=== PATIENT | male | born 1960 | race Caucasian/White ===

== ENCOUNTER 2017-11-06 23:10 | Emergency (ER) | payer MEDICARE ==
[~2017-11-06] VITALS: Ht 170.2 cm; Wt 74.8 kg
[~2017-11-06 23:10] MED LIST: HYDACE5 PO; INDO50 PO; MORP60ER PO; OXYC10TA19 PO; PRED20 PO
[2017-11-07 00:01] LABS: BASOPHILS ABSOLUTE AUTO 0.05 K/mm3 (0.00-0.23); BASOPHILS PERCENT AUTO 0 % (0-2); EOSINOPHILS PERCENT AUTO 0 % (0-6); Hematocrit 47.7 % (37.0-53.0); IMMATURE GRAN ABSOLUTE AUTO 0.14 K/mm3 (0.00-0.10); IMMATURE GRAN PERCENT AUTO 1 % (0-1); LYMPHOCYTES ABSOLUTE AUTO 2.43 K/mm3 (0.84-5.20); LYMPHOCYTES PERCENT AUTO 13 % (21-46); MONOCYTES ABSOLUTE AUTO 1.21 K/mm3 (0.16-1.47); MONOCYTES PERCENT AUTO 6 % (4-13); Mean Corpuscular HGB 32.1 pg (26.0-34.0); Mean Corpuscular HGB Conc 35.6 g/dL (31.5-36.5); Mean Corpuscular Volume 90 fL (80-100); Mean Platelet Volume 9.8 fL (9.1-12.4); NEUTROPHILS ABSOLUTE AUTO 15.63 K/mm3 (1.96-9.15); NEUTROPHILS PERCENT AUTO 80 % (41-73); Platelet Count 234 K/mm3 (150-400); RDW Coefficient Variation 12.8 % (11.7-14.2); RDW Standard Deviation 42.4 fL (35.1-46.3); White Blood Cell Count 19.46 K/mm3 (4.00-11.30)
[2017-11-07 00:39] LABS: Alanine Aminotransfer (ALT/SGP 32 U/L (12-78); Albumin, Blood 3.9 g/dL (3.4-5.0); Albumin/Globulin Ratio 0.9 (0.8-1.8); Alk Phos 88 U/L (50-136); Anion Gap 10 mmol/L (6-16); Aspartate Aminotrans (AST/SGOT 25 U/L (12-37); Bilirubin, Total 0.6 mg/dL (0.1-1.0); Blood Urea Nitrogen 14 mg/dL (8-24); Bun/Creatinine Ratio 24.1 (12.0-20.0); CO2, Blood 25 mmol/L (21-32); Calcium, Blood 8.5 mg/dL (8.5-10.1); Chloride, Blood 102 mmol/L (98-108); Creatinine, Blood 0.58 mg/dL (0.60-1.20); Globulin, Blood 4.3 g/dL (2.2-4.0); Glomerular Filtration Rate >60 (60-); Glucose, Blood 125 mg/dL (70-99); Potassium, Blood 3.9 mmol/L (3.5-5.5); Sodium, Blood 137 mmol/L (136-145); Total Protein, Blood 8.2 g/dL (6.4-8.2)
[2017-11-07] MEDS ORDERED: Zofran Odt4 MG PO (01:27)
[2017-11-07] MEDS ORDERED: Norco 5-325 Ta1 EACH PO (01:27)
== END 2017-11-07 01:59 | disposition home or self-care (01) ==
LOC: ER 23:10
PROVIDERS: Emergency Medicine
DX: K85.90 Acute pancreatitis without necrosis or infection, unspecified (principal); F17.210 Nicotine dependence, cigarettes, uncomplicated; Z86.19 Personal history of other infectious and parasitic diseases
CPT/HCPCS: 80053; 83690; 85025; 96361; 96374; 96375; 96376; 99284; J2270; J2405; J7030

== ENCOUNTER → 2018-10-18 | Outpatient (CLI) | payer MEDICARE ==
[~2018-10-18] MED LIST changes: +Norco 5-325 Ta1 EACH PO; +Zofran Odt4 MG PO
== END | disposition home or self-care (01) ==
LOC: LAB SHORT 12:25 → PLD 12:25
DX: R23.4 Changes in skin texture (principal); L98.8 Other specified disorders of the skin and subcutaneous tissue
CPT/HCPCS: 88305; 88312

== ENCOUNTER → 2018-10-18 | Outpatient (CLI) | payer MEDICARE | END | disposition home or self-care (01) | LOC: LAB 12:08 → LAB SHORT 12:08 | DX: L08.0 Pyoderma (principal) | CPT/HCPCS: 87070; 87205 ==

== ENCOUNTER 2021-08-28 12:10 | Observation (INO) | payer MEDICARE ==
[~2021-08-28] VITALS: Ht 170.2 cm; Wt 82.5 kg
[2021-08-28 13:01] LABS: BASOPHILS ABSOLUTE AUTO 0.06 K/mm3 (0.00-0.23); BASOPHILS PERCENT AUTO 0 % (0-2); EOSINOPHILS ABSOLUTE AUTO 0.02 K/mm3 (0.00-0.68); EOSINOPHILS PERCENT AUTO 0 % (0-6); Hematocrit 47.1 % (37.0-53.0); Hemoglobin 16.9 g/dL (13.5-17.5); IMMATURE GRAN ABSOLUTE AUTO 0.25 K/mm3 (0.00-0.10); IMMATURE GRAN PERCENT AUTO 1 % (0-1); LYMPHOCYTES ABSOLUTE AUTO 1.35 K/mm3 (0.84-5.20); LYMPHOCYTES PERCENT AUTO 5 % (21-46); MONOCYTES ABSOLUTE AUTO 1.88 K/mm3 (0.16-1.47); MONOCYTES PERCENT AUTO 7 % (4-13); Mean Corpuscular HGB 33.3 pg (26.0-34.0); Mean Corpuscular HGB Conc 35.9 g/dL (31.5-36.5); Mean Corpuscular Volume 93 fL (80-100); Mean Platelet Volume 10.9 fL (9.1-12.4); NEUTROPHILS ABSOLUTE AUTO 23.46 K/mm3 (1.96-9.15); NEUTROPHILS PERCENT AUTO 87 % (41-73); Platelet Count 301 K/mm3 (150-400); RDW Coefficient Variation 12.5 % (11.7-14.2); RDW Standard Deviation 42.8 fL (35.1-46.3); Red Blood Cell Count 5.08 M/mm3 (4.30-5.90); White Blood Cell Count 27.02 K/mm3 (4.00-11.30)
[2021-08-28 13:13] LABS: Alanine Aminotransfer (ALT/SGP 28 U/L (12-78); Albumin/Globulin Ratio 0.6 (0.8-1.8); Alk Phos 72 U/L (50-136); Anion Gap 8 mmol/L (6-16); Aspartate Aminotrans (AST/SGOT 26 U/L (12-37); Bilirubin, Total 2.3 mg/dL (0.1-1.0); Blood Urea Nitrogen 18 mg/dL (8-24); Bun/Creatinine Ratio 20.7 (12.0-20.0); CO2, Blood 27 mmol/L (21-32); Calcium, Blood 9.3 mg/dL (8.5-10.1); Chloride, Blood 97 mmol/L (98-108); Creatinine, Blood 0.87 mg/dL (0.60-1.20); Globulin, Blood 5.1 g/dL (2.2-4.0); Glomerular Filtration Rate >60 (60-); Glucose, Blood 141 mg/dL (70-99); Potassium, Blood 4.2 mmol/L (3.5-5.5); Sodium, Blood 132 mmol/L (136-145); Total Protein, Blood 8.1 g/dL (6.4-8.2)
[2021-08-28] MEDS ORDERED: AMLO10 PO (17:19)
[2021-08-28] MEDS ORDERED: LOSARTAN-HCTZ1 EACH PO (17:20)
[2021-08-28] MEDS ORDERED: OMEP20ER PO (17:21)
--- NOTE | 2021-08-28 17:54 | NUR ---
1650 ARRIVED TO ROOM VIA GURNEY. PT AMBULATED TO BATHROOM TO VOID DARK, BRIGHT ORANGE URINE. PT REPORTS CURRENTLY WITH 7/10 ABD PAIN.
--- NOTE | 2021-08-28 17:55 | NUR ---
PT REPORTS ABD PAIN DECREASED AFTER IV MEDS AND IS CURRENTLY 4/10 . PT TELLS ME HE IS PLANNING TO DISCHARGE TO HOME TOMORROW. DISCUSSED WITH PATIENT CURRENT TREATMENT PLAN AND PHYSICIAN ORDERS. PT TALKATIVE, COOPERATIVE
[2021-08-29 04:14] LABS: BASOPHILS ABSOLUTE AUTO 0.04 K/mm3 (0.00-0.23); BASOPHILS PERCENT AUTO 0 % (0-2); EOSINOPHILS ABSOLUTE AUTO 0.19 K/mm3 (0.00-0.68); EOSINOPHILS PERCENT AUTO 1 % (0-6); Hematocrit 38.1 % (37.0-53.0); Hemoglobin 13.3 g/dL (13.5-17.5); IMMATURE GRAN ABSOLUTE AUTO 0.13 K/mm3 (0.00-0.10); IMMATURE GRAN PERCENT AUTO 1 % (0-1); LYMPHOCYTES ABSOLUTE AUTO 1.49 K/mm3 (0.84-5.20); LYMPHOCYTES PERCENT AUTO 8 % (21-46); MONOCYTES ABSOLUTE AUTO 1.58 K/mm3 (0.16-1.47); MONOCYTES PERCENT AUTO 8 % (4-13); Mean Corpuscular HGB 32.9 pg (26.0-34.0); Mean Corpuscular HGB Conc 34.9 g/dL (31.5-36.5); Mean Corpuscular Volume 94 fL (80-100); Mean Platelet Volume 10.5 fL (9.1-12.4); NEUTROPHILS ABSOLUTE AUTO 16.24 K/mm3 (1.96-9.15); NEUTROPHILS PERCENT AUTO 83 % (41-73); Platelet Count 212 K/mm3 (150-400); RDW Coefficient Variation 12.6 % (11.7-14.2); RDW Standard Deviation 43.5 fL (35.1-46.3); Red Blood Cell Count 4.04 M/mm3 (4.30-5.90); White Blood Cell Count 19.67 K/mm3 (4.00-11.30)
[2021-08-29 04:44] LABS: Anion Gap 6 mmol/L (6-16); Blood Urea Nitrogen 15 mg/dL (8-24); CO2, Blood 26 mmol/L (21-32); Calcium, Blood 7.9 mg/dL (8.5-10.1); Chloride, Blood 104 mmol/L (98-108); Creatinine, Blood 0.68 mg/dL (0.60-1.20); Glomerular Filtration Rate >60 (60-); Glucose, Blood 117 mg/dL (70-99); Potassium, Blood 4.4 mmol/L (3.5-5.5); Sodium, Blood 136 mmol/L (136-145)
--- NOTE | 2021-08-29 06:05 | NUR ---
SHIFT SUMMARY A/O X4, PAIN MANAGED PER EMAR, NO TELE EVENTS, INDEPENDENT TO BATHROOM, FLUIDS INFUSING ORDERED. NO ACUTE EVENTS THIS SHIFT. CALL LIGHT IN REACH, WILL CTM AND REPORT TO DAY RN.
[2021-08-29] MEDS ORDERED: CALCIUM CARBON500 M1 PO (11:44)
[2021-08-29] MEDS ORDERED: Percocet 5-3251 EACH PO (11:45)
--- NOTE | 2021-08-29 13:16 | NUR ---
DC'S HOME THIS AM, IV DC'D CATH INTACT, DC INSTRUCTIONS GIVEN, VERBALIZED UNDERSTANDING.
== END 2021-08-29 11:59 | disposition home or self-care (01) ==
LOC: ER 12:10 → SURS 12:11
PROVIDERS: Emergency Medicine; ADMIT Internal Medicine
DX: K85.10 Biliary acute pancreatitis without necrosis or infection (principal); F17.210 Nicotine dependence, cigarettes, uncomplicated; R65.10 Systemic inflammatory response syndrome (SIRS) of non-infectious origin without acute organ dysfunction; E87.1 Hypo-osmolality and hyponatremia; E78.5 Hyperlipidemia, unspecified; K76.0 Fatty (change of) liver, not elsewhere classified
CPT/HCPCS: 36415; 74177; 76705; 80048; 80053; 82330; 83690; 85025; 93005; 93010; A9270; J1170; J1650; J1885; J2405; J3010; J7030; Q9967

== ENCOUNTER 2021-11-09 07:23 | Day surgery (SDC) | payer MEDICARE ==
[~2021-11-09] VITALS: Ht 170.2 cm; Wt 80.9 kg
[~2021-11-09 07:23] MED LIST changes: +AMLO10 PO; +ATOR80 PO; +CALCIUM CARBON500 M1 PO; +LOSARTAN-HCTZ1 EAC6 PO; +MAGNESIUM OXID400 M1 PO; +Magnesium30 MG PO; +OMEP20ER PO; +Percocet 5-3251 EACH PO; +THERA-D2000 UNIT PO; +VITAMIN D325 MC3 PO
--- NOTE | 2021-11-09 09:15 | NUR ---
PT HAS A HX OF HEP C
--- NOTE | 2021-11-09 12:06 | NUR ---
PT TOLERATING PO FLUIDS AND SALTINES. RIDE INFORMED OF STATUS.
--- NOTE | 2021-11-09 12:30 | NUR ---
Discharge instructions reviewed with patient. Patient verbalizes understanding. Copy given to patient to take home. Dressing to procedure site clean, dry, intact with no visible drainage, swelling, erythema or bruising noted. Discharged via wheelchair to private car for ride home.
--- NOTE | 2021-11-10 15:10 | NUR ---
11/10/21 1510 Michelle Scherer VERIFICATIONS: EDIT CHART.
== END 2021-11-09 12:33 | disposition home or self-care (01) ==
LOC: ORSCMMR 07:23 → ORD 08:45 → ORSCMMR 12:33
PROVIDERS: Surgery
PROC: 0FT44ZZ Resection of Gallbladder, Percutaneous Endoscopic Approach (ICD-10-PCS; principal; 2021-11-09 08:45)
PROC: BF031ZZ Plain Radiography of Gallbladder and Bile Ducts using Low Osmolar Contrast (ICD-10-PCS; principal; 2021-11-09 08:45)
DX: K82.8 Other specified diseases of gallbladder (principal); K66.0 Peritoneal adhesions (postprocedural) (postinfection); I10 Essential (primary) hypertension; B19.20 Unspecified viral hepatitis C without hepatic coma; K21.9 Gastro-esophageal reflux disease without esophagitis; F17.210 Nicotine dependence, cigarettes, uncomplicated; Z79.899 Other long term (current) drug therapy
CPT/HCPCS: 74300; 88304; A9270; C1729; J0330; J0690; J1100; J1885; J2405; J2550; J2704; J3010; J7120

== ENCOUNTER 2022-02-10 00:55 | Emergency (ER) | payer MEDICARE ==
[~2022-02-10] VITALS: Ht 172.7 cm; Wt 97.5 kg
[2022-02-10 02:01] LABS: BASOPHILS ABSOLUTE AUTO 0.04 K/mm3 (0.00-0.23); BASOPHILS PERCENT AUTO 1 % (0-2); EOSINOPHILS ABSOLUTE AUTO 0.18 K/mm3 (0.00-0.68); EOSINOPHILS PERCENT AUTO 2 % (0-6); Hemoglobin 16.4 g/dL (13.5-17.5); IMMATURE GRAN ABSOLUTE AUTO 0.05 K/mm3 (0.00-0.10); IMMATURE GRAN PERCENT AUTO 1 % (0-1); LYMPHOCYTES ABSOLUTE AUTO 2.35 K/mm3 (0.84-5.20); LYMPHOCYTES PERCENT AUTO 30 % (21-46); MONOCYTES ABSOLUTE AUTO 0.87 K/mm3 (0.16-1.47); MONOCYTES PERCENT AUTO 11 % (4-13); Mean Corpuscular HGB 32.6 pg (26.0-34.0); Mean Corpuscular HGB Conc 34.9 g/dL (31.5-36.5); Mean Corpuscular Volume 93 fL (80-100); Mean Platelet Volume 9.9 fL (9.1-12.4); NEUTROPHILS PERCENT AUTO 55 % (41-73); Platelet Count 259 K/mm3 (150-400); RDW Coefficient Variation 12.5 % (11.7-14.2); RDW Standard Deviation 43.4 fL (35.1-46.3); Red Blood Cell Count 5.03 M/mm3 (4.30-5.90); White Blood Cell Count 7.79 K/mm3 (4.00-11.30)
[2022-02-10 02:18] LABS: Alanine Aminotransfer (ALT/SGP 38 U/L (12-78); Albumin, Blood 3.8 g/dL (3.4-5.0); Alk Phos 79 U/L (50-136); Anion Gap 5 mmol/L (6-16); Aspartate Aminotrans (AST/SGOT 29 U/L (12-37); Bilirubin, Total 0.5 mg/dL (0.1-1.0); Blood Urea Nitrogen 14 mg/dL (8-24); Bun/Creatinine Ratio 19.6 (12.0-20.0); CO2, Blood 29 mmol/L (21-32); Calcium, Blood 9.3 mg/dL (8.5-10.1); Chloride, Blood 104 mmol/L (98-108); Creatinine, Blood 0.71 mg/dL (0.60-1.20); Ethanol (Alcohol), Blood, Med <3 mg/dL; Globulin, Blood 3.9 g/dL (2.2-4.0); Glomerular Filtration Rate >60 (60-); Glucose, Blood 124 mg/dL (70-99); Sodium, Blood 138 mmol/L (136-145); Total Protein, Blood 7.7 g/dL (6.4-8.2)
[2022-02-10] MEDS ORDERED: Protonix40 MG PO (03:10)
== END 2022-02-10 03:20 | disposition home or self-care (01) ==
LOC: ER 00:55
PROVIDERS: Emergency Medicine
DX: R10.11 Right upper quadrant pain (principal); R10.13 Epigastric pain; K86.3 Pseudocyst of pancreas; F17.200 Nicotine dependence, unspecified, uncomplicated; Z90.49 Acquired absence of other specified parts of digestive tract; Z79.899 Other long term (current) drug therapy
CPT/HCPCS: 36415; 74177; 80053; 83605; 83690; 85025; A9270; G0480; J1885; J7030; Q9967

== ENCOUNTER 2022-02-12 23:19 | Emergency (ER) | payer MEDICARE ==
[~2022-02-12] VITALS: Ht 170.2 cm; Wt 81.7 kg
[~2022-02-12 23:19] MED LIST changes: +Protonix40 MG PO
[2022-02-13 01:12] LABS: BASOPHILS ABSOLUTE AUTO 0.07 K/mm3 (0.00-0.23); BASOPHILS PERCENT AUTO 1 % (0-2); EOSINOPHILS ABSOLUTE AUTO 0.28 K/mm3 (0.00-0.68); EOSINOPHILS PERCENT AUTO 3 % (0-6); Hematocrit 43.9 % (37.0-53.0); Hemoglobin 15.2 g/dL (13.5-17.5); IMMATURE GRAN ABSOLUTE AUTO 0.08 K/mm3 (0.00-0.10); IMMATURE GRAN PERCENT AUTO 1 % (0-1); LYMPHOCYTES ABSOLUTE AUTO 2.42 K/mm3 (0.84-5.20); LYMPHOCYTES PERCENT AUTO 25 % (21-46); MONOCYTES ABSOLUTE AUTO 1.21 K/mm3 (0.16-1.47); MONOCYTES PERCENT AUTO 13 % (4-13); Mean Corpuscular HGB 33.1 pg (26.0-34.0); Mean Corpuscular HGB Conc 34.6 g/dL (31.5-36.5); Mean Corpuscular Volume 96 fL (80-100); Mean Platelet Volume 10.8 fL (9.1-12.4); NEUTROPHILS ABSOLUTE AUTO 5.47 K/mm3 (1.96-9.15); NEUTROPHILS PERCENT AUTO 58 % (41-73); Platelet Count 262 K/mm3 (150-400); RDW Coefficient Variation 12.9 % (11.7-14.2); RDW Standard Deviation 45.6 fL (35.1-46.3); Red Blood Cell Count 4.59 M/mm3 (4.30-5.90); White Blood Cell Count 9.53 K/mm3 (4.00-11.30)
[2022-02-13 01:24] LABS: Albumin, Blood 3.5 g/dL (3.4-5.0); Bilirubin, Total 0.3 mg/dL (0.1-1.0); Calcium, Blood 8.8 mg/dL (8.5-10.1); Creatinine, Blood 1.44 mg/dL (0.60-1.20); Globulin, Blood 3.4 g/dL (2.2-4.0); Potassium, Blood 4.2 mmol/L (3.5-5.5); Total Protein, Blood 6.9 g/dL (6.4-8.2)
== END 2022-02-13 02:10 | disposition home or self-care (01) ==
LOC: ER 23:19
PROVIDERS: Student in an Organized Health Care Education/Training Program
DX: R55 Syncope and collapse (principal); I10 Essential (primary) hypertension; E78.5 Hyperlipidemia, unspecified; F17.200 Nicotine dependence, unspecified, uncomplicated; Z79.899 Other long term (current) drug therapy
CPT/HCPCS: 36415; 71046; 80053; 84484; 85025; 93005; 93010

== ENCOUNTER 2022-10-23 19:02 | Inpatient (IN) | payer MEDICARE ==
[~2022-10-23] VITALS: Ht 175.3 cm; Wt 80.0 kg
[2022-10-23 19:45] LABS: Hematocrit 52.1 % (37.0-53.0); Hemoglobin 18.7 g/dL (13.5-17.5); Mean Corpuscular HGB Conc 35.9 g/dL (31.5-36.5); Mean Corpuscular Volume 92 fL (80-100); Mean Platelet Volume 10.7 fL (9.1-12.4); Platelet Count 224 K/mm3 (150-400); RDW Coefficient Variation 12.7 % (11.7-14.2); RDW Standard Deviation 42.5 fL (35.1-46.3); Red Blood Cell Count 5.66 M/mm3 (4.30-5.90); White Blood Cell Count 29.45 K/mm3 (4.00-11.30)
[2022-10-23 20:05] LABS: BAND PERCENT MAN 2 % (0-8); BASOPHILS PERCENT MAN 0 % (0-2); EOSINOPHILS PERCENT MAN 0 % (0-6); LYMPHOCYTES % ATYPICAL MANUAL 2 % (0-0); LYMPHOCYTES ABSOLUTE MAN 1.76 K/mm3 (0.84-5.20); LYMPHOCYTES PERCENT MAN 4 % (21-46); MONOCYTES ABSOLUTE MAN 0.88 K/mm3 (0.16-1.47); MONOCYTES PERCENT MAN 3 % (4-13); NEUTROPHILS ABSOLUTE MAN 26.79 K/mm3 (1.96-9.15); SEG NEUTROPHILS PERCENT MAN 89 % (41-73); TOTAL CELLS COUNTED 100
[2022-10-23 20:15] LABS: Albumin, Blood 3.3 g/dL (3.4-5.0); Albumin/Globulin Ratio 0.7 (0.8-1.8); Bun/Creatinine Ratio 16.9 (12.0-20.0); Calcium, Blood 8.9 mg/dL (8.5-10.1); Creatinine, Blood 0.77 mg/dL (0.60-1.20); Globulin, Blood 4.6 g/dL (2.2-4.0); Potassium, Blood 4.8 mmol/L (3.5-5.5); Total Protein, Blood 7.9 g/dL (6.4-8.2)
[2022-10-23 22:34] LABS: Source, Urine Voided
[2022-10-23 22:42] LABS: Blood, Urine 2+ (Neg); Glucose Qualitative, Urine Neg (Neg); Ketones, Urine 1+ (Neg); Leukocyte Esterase, Urine 1+ (Neg); Nitrite, Urine Pos (Neg); Protein, Urine 3+ (Neg); Urobilinogen, Urine 1+ (Normal)
[2022-10-23 22:50] LABS: Appearance, Urine Hazy (Clear); Bilirubin, Urine 1+ (Neg); Color, Urine Amber (P-Yellow)
[2022-10-23 22:51] LABS: Amorphous Mod (0-Heavy); Bacteria Few /hpf; Granular Casts 0-2 /lpf (0); Red Blood Cells, Urine 0-2 /hpf (0-2); Squamous Epithelial Cells Not Seen /hpf (Few); WBC Cast 0-2 /lpf (0)
--- NOTE | 2022-10-24 01:19 | NUR ---
PATIENT IS A NEW ADMIT FROM THE ED. AXOX 4 AND SBA TRANSFER FROM [facility] TO BED. ON ROOM AIR. DENIES CHEST PAIN, SOB, AND N/V. REPORTING ABDOMINAL PAIN. PATIENT ORIENTED TO ROOM AND CALL LIGHT.
--- NOTE | 2022-10-24 01:21 | NUR ---
PATIENT GIVEN IV DILAUDID 1 MG FOR ABDOMINAL PAIN. LR BOLUS STARTED PER EMAR. TELEMETRY PLACED AND TECH REPORTS ST 112. WCTM
--- NOTE | 2022-10-24 05:11 | NUR ---
SHIFT SUMMARY PATIENT HAD NO ACUTE CHANGES. AXOX 4 AND INDEPENDENT IN ROOM. PIV REMAINS INTACT. RECEIVED LR BOLUS PER ORDER FOLLOWED BY RATE OF 125 mL/HR. REPORTS DEVELOPER REPORTS ST 112. REPORTED ABDOMEN PAIN AND IV DILAUDID 1 MG GIVEN PRN. REPORTED LAST BEER WAS 10/20/22. HR INCREASED TO 140 PER TECH WHEN NAUSEOUS X ONE. IV ZOFRAN GIVEN WITH GOOD EFFECT. REPORTS LIKES TO SLEEP WITH TV ON. CALL LIGHT IN REACH. BED IN LOWEST POSITION. WILL CONTINUE TO MONITOR UNTIL DAY SHIFT NURSE ASSUMES CARE.
[2022-10-24 05:48] LABS: BASOPHILS ABSOLUTE AUTO 0.05 K/mm3 (0.00-0.23); BASOPHILS PERCENT AUTO 0 % (0-2); EOSINOPHILS ABSOLUTE AUTO 0.02 K/mm3 (0.00-0.68); EOSINOPHILS PERCENT AUTO 0 % (0-6); Hematocrit 45.6 % (37.0-53.0); Hemoglobin 16.2 g/dL (13.5-17.5); IMMATURE GRAN ABSOLUTE AUTO 0.32 K/mm3 (0.00-0.10); IMMATURE GRAN PERCENT AUTO 1 % (0-1); LYMPHOCYTES PERCENT AUTO 4 % (21-46); MONOCYTES ABSOLUTE AUTO 1.49 K/mm3 (0.16-1.47); MONOCYTES PERCENT AUTO 6 % (4-13); Mean Corpuscular HGB 32.9 pg (26.0-34.0); Mean Corpuscular HGB Conc 35.5 g/dL (31.5-36.5); Mean Corpuscular Volume 93 fL (80-100); Mean Platelet Volume 10.7 fL (9.1-12.4); NEUTROPHILS ABSOLUTE AUTO 21.32 K/mm3 (1.96-9.15); NEUTROPHILS PERCENT AUTO 88 % (41-73); Platelet Count 155 K/mm3 (150-400); RDW Coefficient Variation 12.9 % (11.7-14.2); RDW Standard Deviation 43.8 fL (35.1-46.3); Red Blood Cell Count 4.92 M/mm3 (4.30-5.90)
[2022-10-24 06:10] LABS: Albumin, Blood 2.8 g/dL (3.4-5.0); Albumin/Globulin Ratio 0.7 (0.8-1.8); Bilirubin, Total 1.2 mg/dL (0.1-1.0); Bun/Creatinine Ratio 20.5 (12.0-20.0); Calcium, Blood 8.2 mg/dL (8.5-10.1); Creatinine, Blood 0.73 mg/dL (0.60-1.20); Globulin, Blood 4.1 g/dL (2.2-4.0); Potassium, Blood 4.3 mmol/L (3.5-5.5); Total Protein, Blood 6.9 g/dL (6.4-8.2)
--- NOTE | 2022-10-24 18:01 | NUR ---
SHIFT SUMMARY A&O X 4. VSS. MEDICATED THROUGHOUT SHIFT FOR C/O ABD PAIN WITH IV DILAUDID PER EMAR WITH GOOD EFFECT. USES URINAL INDEPENDENTLY, URINE IS A DARK YELLOW TO ORANGE COLOR. IS UNABLE TO EAT, TRIES DRINKING WATER & SOME JUICES OFF AND ON. TOLERATES FLUIDS MOST OF THE TIME. HAS DENIED NAUSEA. IVF's INFUSING PER EMAR. HAS STATED HE HAS SLEPT OFF & ON THROUGHOUT SHIFT REPORTING THE SLEEP IS HELPING HIS PAIN. IS PLEASANT & COOPERATIVE WITH ALL CARE.
[2022-10-25 06:08] LABS: Alanine Aminotransfer (ALT/SGP 27 U/L (12-78); Albumin, Blood 2.2 g/dL (3.4-5.0); Albumin/Globulin Ratio 0.6 (0.8-1.8); Alk Phos 63 U/L (50-136); Anion Gap 3 mmol/L (6-16); Aspartate Aminotrans (AST/SGOT 20 U/L (12-37); Blood Urea Nitrogen 22 mg/dL (8-24); Bun/Creatinine Ratio 26.3 (12.0-20.0); C-REACTIVE PROTEIN, EXT RANGE >19.000 mg/dL (0.000-0.300); CO2, Blood 29 mmol/L (21-32); Calcium, Blood 7.9 mg/dL (8.5-10.1); Chloride, Blood 96 mmol/L (98-108); Creatinine, Blood 0.84 mg/dL (0.60-1.20); Globulin, Blood 3.9 g/dL (2.2-4.0); Glomerular Filtration Rate 100 (60-); Glucose, Blood 159 mg/dL (70-99); Potassium, Blood 4.3 mmol/L (3.5-5.5); Sodium, Blood 128 mmol/L (136-145); Total Protein, Blood 6.1 g/dL (6.4-8.2)
--- NOTE | 2022-10-25 06:15 | NUR ---
PATIENT ALERT AND ORIENTED AND VERY PLEASANT, INDEPENDENT, ROOM AIR, TELE DISCONTINUED THIS AM, CLEAR LIQUIDS, 20 RAC W/ LR @ 125, BM 10/25/22, COMPLAINED OF PAIN EVERY 4 HOURS WHEN PAIN MEDICATION IS DUE. NO EVENTS OVERNIGHT
--- NOTE | 2022-10-25 10:56 | NUR ---
UPDATE THIS RN WITH STUDENT AT TIME OF SHIFT ASSESSMENT AND IN AGREEMENT WITH ASSESSMENT. ASSISTED DIRECTOR OF CONSUMER MARKETING WITH CHARTING SHIFT ASSESSMENT.
--- NOTE | 2022-10-25 17:33 | NUR ---
SHIFT SUMMARY PATIENT MEDICATED FOR PAIN X3. PATIENT DENIES NAUSEA AND SHORTNESS OF BREATH. PATIENT IS IND IN ROOM. PATIENT HAS LR RUNNING AT 125. NEW IV PLACED TO LEFT UPPER ARM. PATIENT VISITED IN AFTERNOON. PATIENT TOLERATING CLEAR LIQUID DIET WELL. PATIENT IS EAGER TO GO HOME. PATIENT IS PLEASANT AND COOPERATIVE WITH CARE.
--- NOTE | 2022-10-26 04:02 | NUR ---
SHIFT SUMMARY PATIENT IS ALERT AND ORIENTED. PATIENT HAS HAD NO ACUTE EVENTS THIS SHFIT. VITAL SIGNS REVIEWED. PATIENT HAS BEEN IND IN ROOM AND VERBALIZES NEEDS EFECTIVELY. PATIENT HAS COMPLAINED OF PAIN AND MEDICATED PER EMAR. PATIENT HAS NOT COMPLAINED OF SOB, NAUSEA OR VOMITTING. PATIENT HAS BEEN RESTING MOST OF SHIFT. BED IN LOCKED AND LOWEST POSITION. CALL LIGHT IN PLACE. WILL MONITOR UNTIL SHIFT CHANGE.
[2022-10-26 06:32] LABS: Bun/Creatinine Ratio 17.8 (12.0-20.0); Calcium, Blood 7.9 mg/dL (8.5-10.1); Creatinine, Blood 1.01 mg/dL (0.60-1.20); Potassium, Blood 3.9 mmol/L (3.5-5.5)
[2022-10-26] MEDS ORDERED: CREON DR 12,001 EACH PO (11:03)
[2022-10-26] MEDS ORDERED: LOSARTAN POTAS100 M1 PO (11:03)
[2022-10-26] MEDS ORDERED: ONDA4ODT MM (11:05)
[2022-10-26] MEDS ORDERED: HYDMOR2 PO (11:20)
== END 2022-10-26 13:35 | disposition home or self-care (01) | DRG 439 ==
LOC: ER 19:02 → MEDS 19:03
PROVIDERS: Emergency Medicine; Family Medicine; Internal Medicine; ADMIT Internal Medicine
DX: K85.20 Alcohol induced acute pancreatitis without necrosis or infection (principal); E87.1 Hypo-osmolality and hyponatremia; R65.10 Systemic inflammatory response syndrome (SIRS) of non-infectious origin without acute organ dysfunction; K85.10 Biliary acute pancreatitis without necrosis or infection; K75.81 Nonalcoholic steatohepatitis (NASH); B19.20 Unspecified viral hepatitis C without hepatic coma; E78.5 Hyperlipidemia, unspecified; I10 Essential (primary) hypertension; K21.9 Gastro-esophageal reflux disease without esophagitis; F17.210 Nicotine dependence, cigarettes, uncomplicated; R94.31 Abnormal electrocardiogram [ECG] [EKG]; K70.30 Alcoholic cirrhosis of liver without ascites; F10.20 Alcohol dependence, uncomplicated; E80.6 Other disorders of bilirubin metabolism; Z79.899 Other long term (current) drug therapy; Z79.02 Long term (current) use of antithrombotics/antiplatelets; Z71.41 Alcohol abuse counseling and surveillance of alcoholic; Z79.891 Long term (current) use of opiate analgesic; Z90.49 Acquired absence of other specified parts of digestive tract
CPT/HCPCS: 36415; 71046; 74177; 80048; 80053; 81001; 83615; 83690; 85025; 86140; 87086; 93005; 93010; 96361; 96372; 96374-59; 96375; 96376; 99285-25; A9270; G0378; J1170; J1650; J2270; J2405; J7120; Q9967

== ENCOUNTER 2022-11-06 11:53 | Inpatient (IN) | payer MEDICARE ==
[~2022-11-06] VITALS: Ht 170.2 cm; Wt 78.2 kg
[~2022-11-06 11:53] MED LIST changes: +CREON DR 12,001 EACH PO; +HYDMOR2 PO; +LOSARTAN POTAS100 M1 PO; +ONDA4ODT MM
[2022-11-06 13:02] LABS: BASOPHILS ABSOLUTE AUTO 0.11 K/mm3 (0.00-0.23); BASOPHILS PERCENT AUTO 1 % (0-2); EOSINOPHILS ABSOLUTE AUTO 0.34 K/mm3 (0.00-0.68); EOSINOPHILS PERCENT AUTO 4 % (0-6); Hematocrit 41.1 % (37.0-53.0); Hemoglobin 14.5 g/dL (13.5-17.5); IMMATURE GRAN ABSOLUTE AUTO 0.06 K/mm3 (0.00-0.10); IMMATURE GRAN PERCENT AUTO 1 % (0-1); LYMPHOCYTES ABSOLUTE AUTO 2.28 K/mm3 (0.84-5.20); LYMPHOCYTES PERCENT AUTO 27 % (21-46); MONOCYTES PERCENT AUTO 7 % (4-13); Mean Corpuscular HGB 32.5 pg (26.0-34.0); Mean Corpuscular HGB Conc 35.3 g/dL (31.5-36.5); Mean Corpuscular Volume 92 fL (80-100); Mean Platelet Volume 10.7 fL (9.1-12.4); NEUTROPHILS PERCENT AUTO 60 % (41-73); Platelet Count 342 K/mm3 (150-400); RDW Coefficient Variation 13.1 % (11.7-14.2); Red Blood Cell Count 4.46 M/mm3 (4.30-5.90); White Blood Cell Count 8.39 K/mm3 (4.00-11.30)
[2022-11-06 13:12] LABS: Albumin/Globulin Ratio 0.6 (0.8-1.8); Bilirubin, Total 0.4 mg/dL (0.1-1.0); Bun/Creatinine Ratio 30.8 (12.0-20.0); Calcium, Blood 9.1 mg/dL (8.5-10.1); Creatinine, Blood 0.55 mg/dL (0.60-1.20); Globulin, Blood 4.8 g/dL (2.2-4.0); Potassium, Blood 3.4 mmol/L (3.5-5.5); Total Protein, Blood 7.8 g/dL (6.4-8.2)
[2022-11-06] MEDS ORDERED: OMEP20ER PO (13:58)
[2022-11-06] MEDS ORDERED: CARAFATE1 GM/10 M1 PO (13:58)
--- NOTE | 2022-11-06 18:27 | NUR ---
PT ARRIVED TO FLOOR AT 1450 VIA CART AND WAS ABLE TO EASILY TRANSFER OVER, JUST NEEDED HELP WITH HIS LINES. PT AOX4 AND COOPERATIVE OF CARE. PT TREATED FOR ABD PAIN PER EMAR. NO DISTRESS NOTED AT THIS TIME, CALL LIGHT WITHIN REACH WILL CONTINUE TO MONITOR.
--- NOTE | 2022-11-06 19:35 | NUR ---
CALLED KENAN ([facility]) REGARDING PATIENTS PAIN. NEW ORDERS GIVEN FOR OXY Q4 PRN FOR BREAKTHROUGH PAIN
--- NOTE | 2022-11-06 23:47 | NUR ---
SPOKE WITH KENAN REGARDING PATIENTS PAIN NOT BEING CONTROLLED BY OXY AND FENTANYL. ORDERS GIVEN TO INCREASE OXY TO 10MG AND 5MG MELATONIN FOR SLEEP
[2022-11-07 04:48] LABS: Bun/Creatinine Ratio 19.8 (12.0-20.0); Calcium, Blood 8.4 mg/dL (8.5-10.1); Creatinine, Blood 0.61 mg/dL (0.60-1.20); Potassium, Blood 4.1 mmol/L (3.5-5.5)
--- NOTE | 2022-11-07 05:43 | NUR ---
PATIENT ALERT AND ORIENTED X4, ROOM AIR, VERY PLEASANT, 20 RAC, 20 MATTEO W/ NS @150, INDEPENDENT TO RESTROOM, PATIENT PAIN WAS NOT UNDER CONTROL WITH MEDICATIONS ON EMAR, PHYSICIAN CONTACTED X2 DURING SHIFT TO CHANGE MEDICATIONS, MELATONIN ALSO ORDERED TO HELP PATIENT SLEEP. PAIN IS NOW UNDER CONTROL PER PATIENT. NO EVENTS OVERNIGHT
[2022-11-07] MEDS ORDERED: AMLO10 PO (14:57)
[2022-11-07] MEDS ORDERED: LOSA50 PO (14:58)
[2022-11-07] MEDS ORDERED: ATOR80 PO (14:58)
[2022-11-07] MEDS ORDERED: Vitamin D1000 UNI1 PO (14:59)
[2022-11-07] MEDS ORDERED: OXAYDO5 M1 PO (15:00)
--- NOTE | 2022-11-07 15:37 | NUR ---
PT DISCHARGE HOME AT 1616 VIA WHEELCHAIR AID TO TRANSPORT OUT TO [facility] AND TO TAKE HOME. NO DISTRESS NOTED TREATED FOR ABD PAIN PER EMAR THROUGHOUT SHIFT. DR HENDRICKS DID CONSULT PRIOR TO PT LEAVING AND PT IS TO FOLLOW UP NEEDED OUTPT. ALL PAPERWORK REVIEWED AND EDUCATIONAL MATERIAL SENT WITH PT. PT INDEPENDENT IN ROOM AND WAS ABLE TO EAT SOME OF HIS FOOD.
== END 2022-11-07 14:10 | disposition home or self-care (01) | DRG 439 ==
LOC: ER 11:53 → MEDS 14:54
PROVIDERS: Emergency Medicine; ADMIT Internal Medicine
DX: K85.91 Acute pancreatitis with uninfected necrosis, unspecified (principal); J90 Pleural effusion, not elsewhere classified; I10 Essential (primary) hypertension; E78.5 Hyperlipidemia, unspecified; B18.2 Chronic viral hepatitis C; K21.9 Gastro-esophageal reflux disease without esophagitis; F17.210 Nicotine dependence, cigarettes, uncomplicated; K76.0 Fatty (change of) liver, not elsewhere classified; E87.6 Hypokalemia; Z90.49 Acquired absence of other specified parts of digestive tract; Z79.899 Other long term (current) drug therapy
CPT/HCPCS: 36415; 74177; 80048; 80053; 83690; 85025; 96361; 96365-59; 96366; 96368; 96372; 96375; 96376; 99285-25; A9270; G0378; J0295; J1170; J1650; J3010; J3480; J7030; J7050; Q9967